=== PATIENT | female | born 1965 | race Caucasian/White ===

== ENCOUNTER 2017-01-23 08:49 | Inpatient (IN) | payer OTHER ==
[~2017-01-23] VITALS: Ht 160 cm; Wt 87.0 kg
[~2017-01-23 08:49] MED LIST: CIPRO500 MG PO; CLONAZEPAM1 MG PO; LIDODERM51 TP; PERCOCET1 TA2 PO; PREMARIN0.625 MG PO; PRILOSEC10 MG PO; PROMETHAZINE HY25 M1 PO; REQUIP0.5 MG PO; SOMA350 MG PO; TOPIRAMATE100 M1 PO; ZOFRAN ODT4 MG SL
--- NOTE | 2017-01-23 09:19 | NUR ---
PT IN ED WITH C/O BILATERAL FLANK PAIN AND UTI SYMPTOMS, PER PT SHE WAS DX AT [facility] ON FRIDAY WITH A KIDNEY STONE AND UTI, PER PT SHE HAS BEEN TAKING KEFLEX AND PYRIDIUM, PT REPORTS WORSENING PAIN, PT URINE IS DARK ORANGE/BROWN, REPORTS LAST DOSE OF PYRIDIUM 8 HOURS AGO; PT REPORTS HX OF INTERSTITIAL CYSTITIS, PT IS PALE APPEARING, O2 SAT LOW 90'S ON ROOM AIR, PLACED ON 2L NC
[2017-01-23 09:20] LABS: microscopic required? YES; urine erythrocyte NEGATIVE (NEGATIVE)
--- NOTE | 2017-01-23 09:21 | NUR ---
DR. CAMPBELL AT BEDSIDE FOR MSE
--- NOTE | 2017-01-23 09:32 | NUR ---
PT SIGNED CONSENT FOR RELEASE OF HER MEDICAL RECORDS FROM [facility] FROM Friday01/18/17; PLAYBACK OPERATOR CALLING THEIR MEDICAL RECORDS
[2017-01-23 09:46] LABS: BASOPHIL % 1.2 % (0-2); PLATELET COUNT 276 x10^3mcL (130-400); RED CELL DISTRIBUTION WIDTH 13.5 % (11.5-14.5)
--- NOTE | 2017-01-23 09:58 | NUR ---
PT AMBULATORY TO RESTROOM WITH STEADY GAIT
--- NOTE | 2017-01-23 10:05 | NUR ---
PT STILL REPORTING PAIN RATED 7/10, WILL NOTIFY DR. CAMPBELL
[2017-01-23 10:08] LABS: CARBON DIOXIDE 29.1 mmol/L (21-32); CREATININE SERUM 1.3 mg/dL (0.6-1.0); POTASSIUM SERUM 3.7 mmol/L (3.5-5.1)
[2017-01-23 10:18] LABS: ALBUMIN 4.1 g/dL (3.4-5.0); BILIRUBIN TOTAL 0.6 mg/dL (0.20-1.00); TOTAL PROTEIN, SERUM 7.7 g/dL (6.4-8.2)
[2017-01-23 10:34] LABS: CK-MB 0.7 ng/mL (0-3.6)
[2017-01-23] MEDS ORDERED: PYRIDIUM100 MG (10:35)
[2017-01-23] MEDS ORDERED: OXYCODONE HCL10 MG PO (10:35)
[2017-01-23] MEDS ORDERED: PHE25 PO (10:35)
[2017-01-23] MEDS ORDERED: CLONAZEPAM1 MG PO (10:36)
[2017-01-23] MEDS ORDERED: METOPROLOL TART25 M1 PO (10:36)
[2017-01-23] MEDS ORDERED: PROBIOTIC1 EAC1 PO (10:37)
[2017-01-23] MEDS ORDERED: GOOD SENSE OMEP20 MG PO (10:37)
--- NOTE | 2017-01-23 10:37 | NUR ---
PT REPORTS RELIEF AFTER MORPHINE, PAIN REDUCED TO 4/10, MEDICAL STUDENT AT BEDSIDE
--- NOTE | 2017-01-23 10:55 | NUR ---
RECEIVED PAPERWORK FROM [facility]
--- NOTE | 2017-01-23 11:00 | NUR ---
REPORT TO KAREN ARECHIGA, AWAITING ADMIT ORDERS PRIOR TO TRANSFER, SHANK SKINNER TEXTING FOR ORDERS
--- NOTE | 2017-01-23 11:11 | NUR ---
PT AMBULATORY TO THE RESTROOM WITH STEADY GAIT
--- NOTE | 2017-01-23 11:25 | NUR ---
PT WAS ENDORSE TO ME BY Mason VIA [place]. AA/O X4. BREATHING EVEN AND UNLABORED, NO RESP DISTRESS OR SOB NOTED. 2L NC FOR COMFORT DUE TO PAIN. IV TO L HAND INTACT AND PATENT. HEPLOCKED. LUNGS CLEAR. BOWEL SOUNDS ACTIVE IN ALL FOUR QUADS. PT DENIES ANY ABD PAIN AT THIS TIME, MEDICATED PER EMAR. VS 159/95. MAP 111. 96 O2 ON 2L. HR 90. RESP 20. PT DENEIS ANY CHEST PAIN OR DISCOMFORT AT THIS TIME. WILL CONTINUE PLAN OF CARE. CALL LIGHT IN REACH.
[2017-01-23 12:17] LABS: T3 TOTAL 0.96 ng/mL
[2017-01-23 12:23] LABS: AMYLASE 50 U/L (25-115); HDL CHOLESTEROL 44 mg/dL (40-60); LIPASE 133 IU/L (73-393); MAGNESIUM 1.8 mg/dL (1.8-2.4); PHOSPHOROUS 2.8 mg/dL (2.5-4.9)
[2017-01-23 12:28] LABS: TRIGLYCERIDES 510 mg/dL (<150)
[2017-01-23 12:29] LABS: CHOLESTEROL 279 mg/dL (<200); CHOLESTEROL/HDL RATIO 6.3
[2017-01-23 12:35] LABS: FREE T4 0.76 ng/dL (0.76-1.46); FREE THYROXINE INDEX 2.1 ug/dL (1.4-4.5); T4(THYROXINE) 6.5 ug/dL (4.7-13.3)
[2017-01-23 13:12] VITALS: BP 119/85
[2017-01-23 13:35] VITALS: BP 136/87
--- NOTE | 2017-01-23 13:52 | NUR ---
PT C/O ABD PAIN. MEDICATED PER EMAR. APPLIED HEATING PAD TO ABD FOR COMFORT. WILL CONTINUE TO MONITOR PT PAIN.
[2017-01-23 16:33] VITALS: BP 136/87
--- NOTE | 2017-01-23 17:09 | NUR ---
PT C/O ABD PAIN AND BACK 09/23. WILL MEDICATED PER EMAR.
[2017-01-23 17:10] VITALS: BP 122/79
--- NOTE | 2017-01-23 18:34 | NUR ---
PT IS SITTING UP IN BED EATTING HER DINNER. PT DENIES ANY ABD OR BACK PAIN AT THIS TIME. K PAD IN PLACE. PT BREATHING EVEN AND UNLABORED ON 2L NC. NO RESP DISTRESS OR SOB NOTED. IV TO THE LFA AND LHAND INTACT AND PATENET. WILL ENDORSE PT TO INCOMING RN.
[2017-01-23 21:40] VITALS: BP 123/77
--- NOTE | 2017-01-23 22:14 | NUR ---
AT 2029 PT REQUSTED FOR DILAUDID FOR ABD PAIN 6/10, PT'S REQUESTING FOR TORADOL NOW FOR PAIN OF 5/10 .
--- NOTE | 2017-01-24 00:07 | NUR ---
MEDICATED PT WITH DILAUDID 2MG PO ,PT STATED DILAUDID IS NOT WORKING FOR HER THAT SHE WILL RATHER CON'T WITH HER HOME PAIN MEDS OXYCONTIN 10MG PO . DR JOSUE AWARE .
[2017-01-24 03:41] LABS: IRON 65 ug/dL (50-170); TOTAL IRON BINDING CAPACITY 274 ug/dL (250-450)
--- NOTE | 2017-01-24 04:01 | NUR ---
PT C/O BACK PAIN 12/24 DILAUDID 2MG GIVEN PO PER PT'S REQUEST .
[2017-01-24 05:45] VITALS: BP 115/55
[2017-01-24 06:34] LABS: CALCIUM 8.3 mg/dL (8.5-10.1); CARBON DIOXIDE 27.1 mmol/L (21-32); CREATININE SERUM 1.2 mg/dL (0.6-1.0); POTASSIUM SERUM 4.2 mmol/L (3.5-5.1)
--- NOTE | 2017-01-24 06:52 | NUR ---
PT C/O BACK PAIN 08/24 DILAUDID GIVEN IVP ORDERED , PIV INTACT INFUSING WELL , TELE NSR.
[2017-01-24 06:58] LABS: BASOPHIL % 0.7 % (0-2); PLATELET COUNT 238 x10^3mcL (130-400); RED BLOOD CELLS 2.76 M/mm3 (4.10-5.10); RED CELL DISTRIBUTION WIDTH 13.7 % (11.5-14.5)
--- NOTE | 2017-01-24 07:40 | NUR ---
RC'D PT RESTING IN BED WITH NO APPARENT SIGNS OF DISTRESS. A/A/O/X4, SPEECH CLEAR AND APPROPRIATE. ON TELE 43 WITH NSR. DENIES CHEST PAIN/PRESSURE. PALP PULSES, NO EDEMA NOTED. RESPIRATIONS EQUAL AND UNLABORED. LUNGS CTA. ON RA, DENIES SOB. ABDOMEN SOFT AND NONTENDER. ACTIVE BS. DENIES N/V. VOIDS FREELY, REPORTS BURNING AT TIMES. STRAINING URINE PROTOCOL. AMBULATORY WITH BRP. SKIN W/D/I. DENIES PAIN AT THIS TIME. PT REPORTS RECIEVING PAIN MEDICATION AT 640AM. BED IN LOW POSITION. EDUCATED ON USING CALL LIGHT WHEN NEEDING ASSISTANCE OUT OF BED. EDUCATED ON POSSIBLE SIDE EFFECTS OF PAIN MEDICATION. PT VERBALIZED UNDERSTANDING. CALL LIGHT IN REACH. WILL CONTINUE TO MONITOR.
[2017-01-24 09:48] VITALS: BP 119/65
--- NOTE | 2017-01-24 10:05 | NUR ---
PT COMPLAINING OF 6/10 PAIN. MEDICATED WITH DILAUDID PO PRN PER MED REC. RESPIRATIONS EQUAL AND UNLABORED. PT EDUCATED ON USING CALL LIGHT WHEN NEEDING TO GET OUT OF BED. PT VERBALIZED UNDERSTANDING. CALL LIGHT IN REACH. WILL CONTINUE TO MONITOR.
[2017-01-24 13:16] VITALS: BP 138/62
--- NOTE | 2017-01-24 13:50 | NUR ---
PT COMPLAINING OF PAIN 08/24. MEDICATED WITH DALAUDID PRN PO PER MED REC. RESPIRATIONS EQUAL AND UNLABORED BILAT. CALL LIGHT IN REACH. WILL CONTINUE TO MONITOR.
--- NOTE | 2017-01-24 14:47 | NUR ---
PT REQUESTING CLONAZEPAM FOR ANXIETY. MEDICATED WITH CLONAZEPAM PO PRN PER MED REC. CALL LIGHT IN REACH. WILL CONTINUE TO MONITOR.
--- NOTE | 2017-01-24 15:36 | NUR ---
Initial Nutrition Assessment Dx: Sepsis, UTI, Ureteral stone PMHx: Interstitial cystitis- dx 19 y/o Von Willebrand disease- pt states it is very mild, never had a significant bleeding episode, even through pregnancies/hysterectomy and surgical procedures. LBP- DDD/DJD HTN- compliant with meds PSHx: Appendectomy, Hysterectomy , Tonsilectomy Labs: (01/24) B, BUN:21H, Cr:1.2H, Ca:8.3L, (01/23) TH, Chol:279H, LDL:143H, H/H:9.1/28L Meds: Colace, Lactinex, Prilosec, NS IV, Zofran Diet:Regular PO Intake: (01/23) l:90% (01/24) b:100% Ht: 63inm, 5'3" Wt:191#, 86.63kg BMI: 33.8kg/m2 (obesity class I) IBW: 115#, 52kg %IBW: 166% adj bw: 134#,61kg UBW:211# Age:51 y/o female Food Allergies:pt with Gluten intolerance Skin:intact Remi:19 Edema:None GI:active bowel sounds Last BM Nursing Trigger: N/V/D>3days, unintentional wt loss>10# in past month Pt admitted with poss Sepsis secondary to possible pyelonephritis w/ UTI per H&P. Per progress note 01/24, patient states that she is feeling better today, but that her right side hurts at the moment with a burning pain. She had similar pain earlier on the left side and both radiate to the back. Per bed huddle this morning, pt is on antibiotics and they are awaiting culture sensitivity. During visit, observed pt laying in bed with at bedside. Pt reports to intentional 20# wt loss within the past 6 weeks when she started cutting out gluten in her diet. Pt states she has no N/V/D/C and her appetite has improved. Problem with: N: No V: No D:No C:No Problems with: Chewing:No Swallowing:No Current appetite: Good, improving Recent wt change:-20# intentional wt loss within the past 6 wks %wt change:9.4% severe Vitamin/Supplement use:Multivitamin and probiotics Special diet at home:Gluten free Physical activity: Not much lately, per pt Education: pt declined nutrition education when RD offered low fat diet due to elevated lipid panel. Estimated Nutritional Needs Based on adjusted body weight 61kg Energy: 1525-1830kcal/d (25-30kcal/kg for maintenance) Protein:49-61g/d (0.8-1.0g/kg for maintenance) Fluid: 1525-1830ml/d (1 ml/kcal) or per doctor Nutrition Diagnosis 1. Obseity related to sedentary lifestyle as evidenced by BMI:33.8kg/m2 and 166% of IBW 2. Not ready for lifestyle change related elevated lipid panel as evidenced by pt declinig nutrition education at this time. Intervention 1. Recommend low fat diet due to pt with elevated lipid panel. Monitor/Evaluate Goal: PO intake at least 75% of estimated needs Monitor: PO intake, Labs, GI function F/U in 7 days as low risk:01/31
--- NOTE | 2017-01-24 15:38 | NUR ---
1. Recommend low fat diet due to pt with elevated lipid panel.
[2017-01-24 17:11] VITALS: BP 147/60
--- NOTE | 2017-01-24 17:13 | NUR ---
PT COMPLAINING OF 6/10 PAIN. MEDICATED WITH DILAUDID PO PRN PER MED REC. CALL LIGHT IN REACH. WILL CONTINUE TO MONITOR.
--- NOTE | 2017-01-24 18:10 | NUR ---
PT RESTING IN BED WITH NO APPARENT SGNS OF DISCOMFORT. RESPIRATIONS EQUAL AND UNLABORED BILAT. ON RA, DENIES SOB. ON TELE 73 WITH NSR. DENIES CHEST PAIN/PRESSURE. PT REPORTS ABDOMINAL PAIN, MEDICATED WITH DIALUDID PO PRN. PER MD ORDERS, STRAIN ALL THE URINE, NO STONES NOTED. KPAD PRESENT. IV PATENT AND INFUSING. BED IN LOW POSITION. CALL LIGHT IN REACH. WILL ENDORSE TO NIGHT RN.
--- NOTE | 2017-01-24 18:56 | NUR ---
PT COMPLAINING OF 6/10 PAIN. MEDICATED WITH TORADOL IVP PRN PER MED REC. CALL LIGHT IN REACH. WILL ENDORSE TO STARS ANALYTICAL LEAD
--- NOTE | 2017-01-24 19:13 | NUR ---
SHIFT REASSESSMENT DONE.PATIENT ALERT AND ORIENTED.NOT IN RESP DISTRESS.RESTING WELL.NS ORDERED.TELW 43 NSR.SKIN INTACT.STRAIN URINE FOR CALCULUS.K PAD BACK.CALL LIGHT IN REACH.
[2017-01-24 20:29] VITALS: BP 146/84
--- NOTE | 2017-01-24 21:13 | NUR ---
ALL PM MEDS GIVEN,ALSO PAIN MED DIALUDID PO GIVEN,SHE WANTS IT ALMOST Q 3 HOURS ON THE DOT PER REPORT.
--- NOTE | 2017-01-24 21:30 | NUR ---
GIVEN HER SLEEPING PILL.
--- NOTE | 2017-01-24 21:37 | NUR ---
UP IN RESTROOM WHEN NEEDE,CALL LITE IN REACH.
--- NOTE | 2017-01-25 01:25 | NUR ---
PATIENT HAD HER ELAVIL,AND ALSO FLEXERIL,PATIENT JUST MESIRABLE.WANTING HER DILAUDID PO,DECLINE TORADOL.WILL GIVE IN AN HOUR,SHE REQUEST.
--- NOTE | 2017-01-25 03:40 | NUR ---
WANTING HER DILAUDID PO,RAN OUT HERE IN 2 NORTH,GOT IT IN 2 SOUTH.
--- NOTE | 2017-01-25 05:05 | NUR ---
NEW IV BAG.
[2017-01-25 05:29] VITALS: BP 129/75
--- NOTE | 2017-01-25 06:04 | NUR ---
PATIENT STILL WANTING HER DILAUDID Q 3 HOURS.WILL GIVE ANOTHER ONE AT 0640.IVF NS AT 130 CC/ HOUR.WILL ENDORSE TO NEXT SHIFT.
[2017-01-25 07:00] LABS: BASOPHIL % 0.7 % (0-2); PLATELET COUNT 217 x10^3mcL (130-400); RED CELL DISTRIBUTION WIDTH 13.6 % (11.5-14.5)
[2017-01-25 07:11] LABS: CALCIUM 8.5 mg/dL (8.5-10.1); CARBON DIOXIDE 25.9 mmol/L (21-32); CREATININE SERUM 1.1 mg/dL (0.6-1.0); MAGNESIUM 1.8 mg/dL (1.8-2.4); PHOSPHOROUS 3.5 mg/dL (2.5-4.9); POTASSIUM SERUM 4.1 mmol/L (3.5-5.1)
--- NOTE | 2017-01-25 07:40 | NUR ---
RC'D PT RESTING IN BED WITH NO APPARENT SIGNS OF DISTRESS. A/A/O/X4, SPEECH CLEAR AND APPROPRIATE. ON TELE 43 WITH SR. DENIES CHEST PAIN/PRESSURE. PALP PULSES, NO EDEMA NOTED. RESPIRATIONS EQUAL AND UNLABORED BILAT. LUNGS CTA. ON RA, DENIES SOB. ABDOMEN SOFT AND NONTENDER. PT REPORTS PAIN TO LOWER PELVIC AREA AND BACK SIDE. ACTIVE BS. DENIES N/V AT THIS TIME. VOIDS FREELY, REPORTS BURNING UPON URINATION. AMBULATORY WITH BRP. SKIN W/D/I. IV PATENT AND INFUSING. BED IN LOW POSITION. EDUCATED ON USING CALL LIGHT WHEN NEEDING ASSISTANCE OUT OF BED AND POSSIBLE SIDE EFFECTS OF PAIN MEDICATION. PT VERBALIZED UNDERSTANDING. CALL LIGHT IN REACH. WILL CONTINUE TO MONITOR.
[2017-01-25 09:15] VITALS: BP 127/85
--- NOTE | 2017-01-25 13:03 | NUR ---
PT RESTING IN BED WITH NO APPARENT SIGNS OF DISTRESS. RESPIRATIONS EQUAL AND UNLABORED. CALL LIGHT IN REACH. BED IN LOW POSITION. WILL CONTINUE TO MONITOR.
[2017-01-25 13:35] VITALS: BP 133/79
--- NOTE | 2017-01-25 13:44 | NUR ---
PT COMPLAINING OF 7/10 PAIN. MEDICATED WITH OXYCODONE PRN PER MED REC. WILOL CONTINUE TO MONITOR. CALL LIGHT IN REACH. FAMILY PRESENT AT BEDSIDE.
[2017-01-25] MEDS ORDERED: LEVAQUIN750 MG PO (14:15)
[2017-01-25] MEDS ORDERED: LAC PO (14:16)
[2017-01-25] MEDS ORDERED: ZOF4 PO (14:17)
[2017-01-25 14:45] VITALS: BP 133/79
[2017-01-25] MEDS ORDERED: KEFLEX250 M1 (14:48)
--- NOTE | 2017-01-25 15:55 | NUR ---
PT PROVIDED WITH DC HOME INSTRUCTIONS. GIVEN MEDICATION EDUCATION. MADE AWARE PRESCRIPTIONS HAVE BEEN SENT TO PT'S SELECTED PHARMACY. MADE AWARE OF FOLLOW UP APPT WITH PCP. INSTRUCTED ON IMPORTANCE OF COMPLETING ANTIBIOTIC TX ORDERED. MADE AWARE OF WORSENING SYMTPOMS TO RETURN TO ED OR REPORT TO PCP. PT VERBALIZED UNDERSTANDNING OF INSTRUCTIONS. TELE AND IV DC'D, CATHETER INTACT. PT TRANSPORTED VIA WC TO THE LOBBY WITH ALL PERSONAL BELONGINGS IN HAND ACCOMPANIED BY APPLICATION DEVELOPMENT PROJECT MANAGER AND FAMILY FREE OF ANY APPARENT DISTRESS.
== END 2017-01-25 15:55 | disposition home or self-care (01) | DRG 720 ==
LOC: ED 08:49 → DU 10:30
PROVIDERS: Emergency Medicine; Family Medicine; ADMIT Family Medicine Sports Medicine
DX: A41.9 Sepsis, unspecified organism (principal); N17.0 Acute kidney failure with tubular necrosis; I10 Essential (primary) hypertension; R65.20 Severe sepsis without septic shock; N30.10 Interstitial cystitis (chronic) without hematuria; E66.9 Obesity, unspecified; D68.0 Von Willebrand disease; E78.5 Hyperlipidemia, unspecified; R80.9 Proteinuria, unspecified; D53.9 Nutritional anemia, unspecified; Z68.33 Body mass index [BMI] 33.0-33.9, adult; Z88.2 Allergy status to sulfonamides; Z88.8 Allergy status to other drugs, medicaments and biological substances; G89.29 Other chronic pain; M54.9 Dorsalgia, unspecified; K44.9 Diaphragmatic hernia without obstruction or gangrene
CPT/HCPCS: 83880; 84439; J1885; J1956; J2270; J2405; J3490; J7030; Q0092; Q9967